=== PATIENT | male | born 1985 | race Caucasian/White ===

== ENCOUNTER → 2018-02-25 | Outpatient (CLI) | payer MEDICAID | LOC: LAB 12:18 | DX: Z20.5 Contact with and (suspected) exposure to viral hepatitis (principal) ==

== ENCOUNTER 2018-05-14 19:00 | Emergency (ER) | payer MEDICAID ==
[~2018-05-14] VITALS: Ht 167.6 cm; Wt 64.1 kg
[2018-05-14] MEDS ORDERED: TRAMADOL 50 MG TAB PO (19:41)
[2018-05-14 19:52] VITALS: BP 121/58
== END 2018-05-14 19:52 | disposition home or self-care (01) ==
LOC: ED 19:00
DX: S00.33XA Contusion of nose, initial encounter (principal); M26.601 Right temporomandibular joint disorder, unspecified; W22.8XXA Striking against or struck by other objects, initial encounter; Y92.009 Unspecified place in unspecified non-institutional (private) residence as the place of occurrence of the external cause